=== PATIENT | female | born 1970 | race Caucasian/White ===

== ENCOUNTER → 2017-02-25 10:54 | Outpatient (CLI) | payer BC ==
[2011-08-06 11:43] VITALS: BMI 33.0
== END | disposition home or self-care (01) ==
LOC: D.MRI 10:54
DX: M75.42 Impingement syndrome of left shoulder (principal)

== ENCOUNTER 2017-03-05 13:40 | Outpatient (CLI) | payer BC ==
[2017-03-05] MEDS ORDERED: ESTRACE1 MG PO (15:10)
[2017-03-05] MEDS ORDERED: TENORMIN25 MG PO (15:10)
[2017-03-05] MEDS ORDERED: CLARITIN 10 MG10 MG PO (15:11)
[2017-03-05] MEDS ORDERED: AZELASTINE137 MCG/0. NASAL (15:11)
[2017-03-05] MEDS ORDERED: HYDROCHLOROTH12.5 M1 (15:12)
[2017-03-05] MEDS ORDERED: HYDROCODONE-APA1 TAB PO (15:13)
[2017-03-05] MEDS ORDERED: CYCLOBENZAPRINE5 MG PO (15:14)
[2017-03-05 15:36] VITALS: BP 144/81; Ht 157.5 cm
--- NOTE | 2017-03-05 15:40 | NUR ---
1520-BLADDER SCAN 34ML. 1526-PHONED REPORT TO DR. OVIEDO'S OFFICE, SPOKE WITH ITZEL.
== END 2017-03-05 15:26 ==
LOC: D.OPS 13:40
DX: R31.9 Hematuria, unspecified (principal)

== ENCOUNTER → 2017-05-07 10:35 | Outpatient (CLI) | payer BC ==
[~2017-05-07 10:35] MED LIST: AZELASTINE137 MCG/0. NASAL; CLARITIN 10 MG10 MG PO; CYCLOBENZAPRINE5 MG PO; ESTRACE1 MG PO; HYDROCHLOROTH12.5 M1; HYDROCODONE-APA1 TAB PO; TENORMIN25 MG PO
== END | disposition home or self-care (01) ==
LOC: D.US 10:30
DX: R80.9 Proteinuria, unspecified (principal)

== ENCOUNTER 2017-05-13 06:43 | Day surgery (SDC) | payer BC ==
[~2017-05-13] VITALS: Ht 157.5 cm; Wt 87.5 kg
[2017-05-13] MEDS ORDERED: ZYLOPRIM100 MG PO (07:13)
[2017-05-13] MEDS ORDERED: INDERAL10 MG PO (07:17)
[2017-05-13] MEDS ORDERED: NORVASC5 MG PO (07:18)
[2017-05-13] MEDS ORDERED: COLCRYS0.6 MG PO (07:19)
[2017-05-13] MEDS ORDERED: ASTEPRO30 M1 NASAL (07:20)
[2017-05-13 07:21] LABS: HEMATOCRIT 43.9 % (36.0-48.0); HEMOGLOBIN 14.6 g/dL (12-16); MCHC 33.3 g/dL (31.0-37.0); MCV 81.1 fL (80.0-100.0); MEAN PLATELET VOLUME 10.2 fL (7.4-10.4); RBC 5.41 10x6/uL (4.00-5.40); WBC 10.4 10x3/uL (4.8-10.8)
[2017-05-13] MEDS ORDERED: CLARITIN 10 MG10 MG PO (07:21)
[2017-05-13] MEDS ORDERED: VITAMIN D250000 UNIT (07:22)
[2017-05-13] MEDS ORDERED: ZANAFLEX4 MG (07:23)
[2017-05-13] MEDS ORDERED: PROAIR HFA8.5 GM (07:24)
[2017-05-13 07:32] VITALS: Ht 157.5 cm; Wt 87.5 kg
[2017-05-13] MEDS ORDERED: HYDROCODONE-APA1 TAB PO (10:48)
--- NOTE | 2017-05-13 12:35 | NUR ---
1225--IV DC'D, PT UP TO DRESS AT THIS TIME. DIVYA ADKINS 1235--DISCHARGE INSTRUCTIONS GIVEN, PT VERBALIZES UNDERSTANDING. PT OFF UNIT VIA WC. DIVYA ADKINS
--- NOTE | 2017-05-14 21:23 | OP ---
PATIENT NAME: GIOVANNI MUHAMMAD MEDICAL RECORD: [id number] :68 LOCATION:[facility] ADMISSION DATE: SURGEON: AYDEN WEISS MD DATE OF OPERATION: 05/13/2017 PREOPERATIVE DIAGNOSES: 1. Impingement syndrome of the left shoulder. 2. Acromioclavicular arthritis of the left shoulder. POSTOPERATIVE DIAGNOSES: 1. Impingement syndrome of the left shoulder. 2. Acromioclavicular arthritis of the left shoulder. PROCEDURES: 1. Arthroscopic distal clavicle excision. 2. Arthroscopic subacromial decompression, acromioplasty and bursectomy. SURGEON: Ayden Weiss MD ANESTHESIA: General. INTRAOPERATIVE COMPLICATIONS: None. SUMMARY OF PATHOLOGIC FINDINGS: Consistent with the preoperative diagnosis, the patient had findings consistent with the AC arthropathy as well as impingement syndrome with excoriation of the coracoacromial ligament, type 3 acromion. OPERATIVE SUMMARY IN DETAIL: After obtaining the appropriate preoperative orthopedic surgery consent as well as anesthetic consultation, evaluation and clearance, the patient was brought to the operating room and placed on the operating table in supine position. After general laryngeal mask was administered, the patient was placed in a right lateral decubitus position. All pressure points were well padded to include down leg peroneal nerve pad as well as axillary roll. The patient was held firmly to the operating table using the vacuum pack suction system as well as the belt strap system. Left upper extremity was prepped and draped in a routine sterile fashion, it was held in the Arthrex traction boom at 30 degrees of forward flexion, 30 degrees of abduction with 10 pounds of traction laterally. Arthroscopy was established in the glenohumeral joint from a posterior portal. Diagnostic arthroscopy showed the patient to have no intraarticular findings. The labrum looked good as well as the rotator cuff. The patient did have a small amount of bicipital tendinitis. At this point, arthroscopy was established in the subacromial space. Accessory lateral portal was established through which the soft tissue of the acromion was denuded and the coracoacromial ligament was released. Having completed this, a bur was utilized to perform acromioplasty at the level of acromioclavicular joint and then through a separate anterior arthroscopic portal under direct arthroscopic visualization, a 1-cm distal clavicle excision was performed. Lastly, all subacromial bursa was taken down with a resector. At this point, arthroscopy portals were closed in routine interrupted fashion using 4-0 Prolene. Sterile dressings were applied. The patient was awakened, LMA was removed. She was taken to recovery room in stable condition. All final needle and sponge counts were correct. TRANSINT:[id number] Voice Confirmation ID: [id number] DOCUMENT ID: [id number] OPERATIVE REPORT [id number] GIOVANNI MUHAMMAD MD, AYDEN LAY at 2123 CC: [id number] DICTATION DATE: 05/13/17 1053 [facility]: 05/13/17 1317 [facility] 05/13/17 [id number] [place] [address]
== END 2017-05-13 12:35 | disposition home or self-care (01) ==
LOC: D.OPS 06:43
PROVIDERS: Anesthesiology
DX: M75.42 Impingement syndrome of left shoulder (principal); M13.812 Other specified arthritis, left shoulder; Z01.812 Encounter for preprocedural laboratory examination

== ENCOUNTER 2017-11-02 07:57 | Emergency (ER) | payer BC ==
[2017-05-13 07:32] VITALS: BMI 35.4
[~2017-11-02 07:57] MED LIST changes: +ASTEPRO30 M1 NASAL; +COLCRYS0.6 MG PO; +INDERAL10 MG PO; +NORVASC5 MG PO; +PROAIR HFA8.5 GM; +VITAMIN D250000 UNIT; +ZANAFLEX4 MG; +ZYLOPRIM100 MG PO
[2017-11-02 10:49] LABS: BASOPHILS 0.3 % (0-2); EOSINOPHILS 1.2 % (0-7); HEMATOCRIT 38.1 % (36.0-48.0); HEMOGLOBIN 12.3 g/dL (12-16); IMMATURE GRANULOCYTES 0.4 % (0-5); LYMPHOCYTES 13.6 % (15-50); MCH 27.8 pg (26.0-34.0); MCHC 32.3 g/dL (31.0-37.0); MCV 86.2 fL (80.0-100.0); MEAN PLATELET VOLUME 10.1 fL (7.4-10.4); MONOCYTES 4.2 % (2-11); NEUTROPHILS 80.3 % (40-80); RBC 4.42 10x6/uL (4.00-5.40); RDW 15.7 % (11.5-14.5); WBC 11.3 10x3/uL (4.8-10.8)
[2017-11-02 10:50] LABS: PLATELET COUNT 288 10x3/uL (130-400)
[2017-11-02 10:56] LABS: ALBUMIN 3.3 g/dL (3.4-5.0); ANION GAP 10.5 mmol/L (8-16); BILIRUBIN - TOTAL 0.25 mg/dL (0.2-1.3); C-REACTIVE PROTEIN 1.4 mg/dL (0.0-0.9); CALCIUM 9.2 mg/dL (8.5-10.1); CARBON DIOXIDE 30.2 mmol/L (21.0-32.0); CREATININE - SERUM 1.6 mg/dL (0.6-1.3); POTASSIUM - SERUM 3.7 mmol/L (3.5-5.1); PROTEIN - SERUM 7.2 g/dL (6.4-8.2)
== END 2017-11-02 12:46 | disposition home or self-care (01) ==
LOC: D.ER 07:57
PROVIDERS: Family Medicine
DX: R51 Headache (principal); I12.9 Hypertensive chronic kidney disease with stage 1 through stage 4 chronic kidney disease, or unspecified chronic kidney disease; N18.9 Chronic kidney disease, unspecified; F17.200 Nicotine dependence, unspecified, uncomplicated